=== PATIENT | male | born 1985 | race Caucasian/White ===

== ENCOUNTER 2020-09-08 17:36 | Emergency (ER) | payer BC ==
[2020-09-08] MEDS ORDERED: Acetaminophen/HYDROcodone 325-5 MG Tab PO ONE (17:37)
[2020-09-08] MEDS ORDERED: Acetaminophen 500 MG Tab PO ONE (18:04)
[2020-09-08] MEDS ORDERED: Lidocaine 2% Viscous Solution 15 ML Cup PO ONE (18:04)
--- NOTE | 2020-09-08 18:19 | EDM.PDOC ---
ED HPI GENERAL MEDICAL PROBLEM - General Chief Complaint: ENT Problem Stated Complaint: DENTAL PAIN Time Seen by Provider: 09/08/20 18:00 Source of Information: Reports: Patient, RN, RN Notes Reviewed History Limitations: Reports: No Limitations - History of Present Illness INITIAL COMMENTS - FREE TEXT/NARRATIVE: Patient presents to the ED via personal vehicle with complaints of dental pain. The patient states he broke his tooth over one year ago; he has not been evaluated by a dentist in that time for this problem. He reports he has noticed an increase in pain over the past three days and currently rates it at 10/10. He has taken Naproxen x1 which has offered no relief of his pain. Additionally, he notes green/yellow nasal drainage from the left nare for the past six months. He denies fever, shaking chills, vision changes, palpitations, sore throat, or difficulty breathing. The patient attests to smoking 1/4 pack of cigarettes per day. He denies alcohol or recreational drug use. 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 ED EXAM, ENT - Physical Exam Exam: See Below Exam Limited By: No Limitations General Appearance: Alert, No Apparent Distress Eye Exam: Bilateral Eye: EOMI, Normal Inspection, PERRL (3mm) Ears: Normal External Exam, Normal Canal, Hearing Grossly Normal, Normal TMs Nose: Normal Inspection, Normal Mucousa, No Blood, Nasal Tenderness. No: Nasal Deformity, Nasal Discharge, Nasal Swelling Mouth/Throat: Dental Abcess (To right upper ), Dental Pain (To right upper), Dental Tenderness (To right upper). No: Hoarse Voice, Muffled Voice, Oral Ulcers, Throat Swelling, Tongue Swelling, Tonsillar Exudates, Tonsillar Swelling Head: Atraumatic, Normocephalic, Facial Swelling (To right lips/sinus), Facial Tenderness (To right ), Sinus Tenderness (To right ) Neck: Normal Inspection, Supple, Non-Tender, Full Range of Motion. No: Lymphadenopathy (L), Lymphadenopathy (R) Respiratory/Chest: No Respiratory Distress, Lungs Clear, Normal Breath Sounds, No Accessory Muscle Use, Chest Non-Tender Cardiovascular: Normal Peripheral Pulses, Regular Rate, Rhythm, No Edema, No Gallop, No JVD, No Murmur, No Rub Extremities: Normal Inspection, Normal Range of Motion, Non-Tender, No Pedal Edema, Normal Capillary Refill Neurological: Alert, Oriented, CN II-XII Intact, Normal Cognition, Normal Gait, No Motor/Sensory Deficits Psychiatric: Normal Affect, Normal Mood Skin: Warm, Dry, Intact, Normal Color, No Rash. No: Ecchymosis, Erythema, Jaundice, Mottled, Pallor, Petechiae Course - Vital Signs Last Recorded V/S: Last Vital Signs Temp 97.4 F 09/08/20 17:46 Pulse 91 09/08/20 17:46 Resp 18 09/08/20 17:46 BP 159/95 H 09/08/20 17:46 Pulse Ox 100 09/08/20 17:46 - Orders/Labs/Meds Meds: Medications Discontinued Medications Generic Name Dose Route Start Last Admin Trade Name Wallace PRN Reason Stop Dose Admin Acetaminophen 1,000 mg 09/08/20 18:04 09/08/20 18:19 Tylenol Extra Strength PO 09/08/20 18:05 1,000 mg ONETIME ONE Administration Hydrocodone Bitart/Acetaminophen Confirm 09/08/20 19:20 09/08/20 19:26 Shubert 325-5 Mg Administered 09/08/20 19:21 Not Given Dose 1 tab .ROUTE .STK-MED ONE Hydrocodone Bitart/Acetaminophen 1 tab 09/08/20 17:37 Shubert 325-5 Mg PO 09/08/20 17:38 .STK-MED ONE Clindamycin Phosphate 300 mg/ 52 mls @ 100 mls/hr 09/08/20 18:23 09/08/20 18:45 Sodium Chloride IV 09/08/20 18:54 100 mls/hr ONETIME ONE Administration Lidocaine HCl 10 ml 09/08/20 18:04 09/08/20 18:20 Xylocaine 2% Viscous PO 09/08/20 18:05 10 ml ONETIME ONE Administration - Re-Assessments/Exams Free Text/Narrative Re-Assessment/Exam: 09/08/20 Dental abscess to left upper. Will treat pain with viscous lidocaine and acetaminophen 1000mg. Departure - Departure Time of Disposition: 18:30 Disposition: Home, Self-Care 01 Condition: Good Clinical Impression: Dental abscess - Discharge Information *PRESCRIPTION DRUG MONITORING PROGRAM REVIEWED*: Not Applicable *COPY OF PRESCRIPTION DRUG MONITORING REPORT IN PATIENT PABLO: Not Applicable Instructions: Dental Abscess, [id number] Forms: ED Department Discharge Additional Instructions: Rx: Viscous lidocaine Rx: Clindamycin 1.) Continue with previously scheduled dentist appointment for Sunday09/13/20 2.) In addition to the lidocaine you may take acetaminophen (Tylenol) 1000mg every six hours for pain. You may also take ibuprofen (Motrin/Advil) 400mg every six hours for pain. You may stagger these medications so you are taking a dose every three hours. 3.) Drink plenty of water to stay hydrated. Sepsis Event Note (ED) - Evaluation Sepsis Screening Result: No Definite Risk
[2020-09-08] MEDS ORDERED: Acetaminophen/HYDROcodone 325-5 MG Tab ONE (19:20)
== END 2020-09-08 19:26 | disposition home or self-care (01) ==
LOC: DL.ED 17:36
DX: K04.7 Periapical abscess without sinus (principal); Z88.0 Allergy status to penicillin; Z79.899 Other long term (current) drug therapy
CPT/HCPCS: 96365; 99282-25; 99283; A9270-GY; J3490